=== PATIENT | female | born 1995 | race Caucasian/White ===

== ENCOUNTER 2023-01-17 10:12 | Outpatient (CLI) | payer OTHER, SELFPAY ==
[2023-01-17 17:11] LABS: Chlamydia DNA Amplified* NOT DETECTED (No Detected); GC DNA Amplified* NOT DETECTED (No Detected)
== END 2023-01-17 10:13 | disposition home or self-care (01) ==
PROVIDERS: PCP Nurse Practitioner Family; Visit Provider Nurse Practitioner Family
DX: R35.0 Frequency of micturition (principal); Z11.3 Encounter for screening for infections with a predominantly sexual mode of transmission
CPT/HCPCS: 87086; 87491; 87591

== ENCOUNTER 2023-09-24 08:30 | Outpatient (CLI) | payer OTHER, SELFPAY ==
[2023-09-24 14:54] LABS: Bacterial Vaginosis* Negative (Negative); Candida glab/krus NOT DETECTED (No Detected); Candida species NOT DETECTED (No Detected); Trichomonas vaginalis NOT DETECTED (No Detected)
== END 2023-09-24 08:31 | disposition home or self-care (01) ==
LOC: KYNREF 08:48
PROVIDERS: PCP Nurse Practitioner Family; Visit Provider Nurse Practitioner Family
DX: N89.8 Other specified noninflammatory disorders of vagina (principal)
CPT/HCPCS: 81513; 87481; 87661

== ENCOUNTER 2024-09-20 18:07 | Outpatient (CLI) | payer BC, SELFPAY | END 2024-09-20 18:08 | disposition home or self-care (01) | LOC: KYNREF 18:07 | PROVIDERS: PCP Nurse Practitioner Family; Visit Provider Nurse Practitioner Family | DX: Z12.4 Encounter for screening for malignant neoplasm of cervix (principal) | CPT/HCPCS: 87624; 87625; 88141; 88142 ==

== ENCOUNTER 2025-04-25 08:09 | Emergency (ER) | payer BC, SELFPAY ==
[2025-04-25] VITALS (10 sets, daily range): BP systolic 122–157; BP diastolic 89–111; PULSE 89–118; RESP 12–16; TEMP 36.7; O2SAT 96–100; BMI 40.7
--- OUTSIDE RECORDS SUMMARY | 2025-04-25 08:11 | XMS_ITS | Clinical Summary ---
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 84 tablet 3 9 Active Active Problems No known active problems Immunizations Immunization Administration Dates Next Due DTaP 02/28/2002, 9,1997,06/19,1997 HIB HbOC (HibTITER) 03/15/1999, 8,1997,04/17 Hepatitis A (Peds) 05/21/2010,03/07/2009 Hepatitis B (Peds) 1997,1997, 997 Human Papilloma Virus Vaccine 01/13/2012, 010,03/07/2009 Inactivated Polio Vaccine 02/28/2002,,1997,04/17 Influenza, IIV4 03/27/2019,07/03/2016 Influenza, IIV4 (=>6mos) MDV 04/30/2017 Influenza,CCIIV4 PRESERV FREE 06/11/2018 MENINGOCOCCAL VACCINE 2 VIAL 2MO-55YO (MENVEO) 12/28/2017 MMR 03/07/2009,07/19/1998 Meningococcal Vaccine (Menactra) 03/07/2009 Tdap 03/01/2018,03/07/2009 Tuberculin (PPD) 12/08/2017 Family History Medical History Relation Name Comments Unknown Father Cancer Maternal Grandfather Heart failure Maternal Grandmother Good Health Mother Good Health Sister Relation Name Status Comments Father Maternal Grandfather Maternal Grandmother Mother Alive Sister Alive Social History Tobacco Use Types Packs/Day Years Used Date Smoking Tobacco: Never Smokeless Tobacco: Never Tobacco Cessation:Counseling Given: Yes Alcohol Use Standard Drinks/Week Comments Not Currently 0 (1 standard drink = 0.6 oz pur e alcohol) social Comments No Sex and Gender Information Value Date Recorded Sex Assigned at Not on file Legal Sex Female 12:00 PM CDT Gender Identity Not on file Sexual Orientation Not on file Obstetrics History Last Filed Vital Signs Vital Sign Reading Time Taken Comments Blood Pressure 131/85 03/30/2019 9:19 AM CDT Pulse 80 03/30/2019 9:19 AM CDT Temperature 36.9 C (98.4 F) 03/30/2019 9:19 AM CDT Respiratory Rate 16 06/13/2018 10:12 AM 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 Oxygen Saturation 99% 03/30/2019 9:19 AM CDT Inhaled Oxygen Concentration - - Weight 94.3 kg (208 lb) 03/30/2019 9:19 AM CDT Height 162.4 cm (5' 3.94) 03/30/2019 9:19 AM CD T Body Mass Index 35.77 03/30/2019 9:19 AM CDT Plan of Treatment Health Maintenance Due Date Last Done Comments HIV for age 15-65 02/14/2012 Hepatitis C screening for age 18-79 2015 BMI (ht and wt on same day) for age 18+ 03/30/2020 03/30/2019, 12/28/2017 Depression screening for age 12+ 03/30/2020 03/30/2019, 12/28/2017, 12/28/2017 Pap test for age 21-65 03/30/2022 03/30/2019 COVID-19 vaccine series (2023- season) 2025 Influenza Vaccine (#1) 2025 9, 06/11/2018, 04/30/2017, Additional history exists Tetanus booster 03/01/2028 03/01/2018, 03/07/2009 RSV vaccine for adults or (1 - 1-dose 75+ series) 02/14/2072 Hepatitis B series for 19+ Completed 11/13, 1997, 1997 HPV series for age 9-45 Completed 01/13/20 12, 05/21/2010, 03/07/2009 Pneumococcal series for age 6-49 Aged Out No longer eligible based on patient's age to complete this topic Procedures Procedure Name Priority Date/Time Associated Diagnosis Comments COOK FISHING VESSEL THIN PREP PAP SCREEN IMAGED Routine 03/30/2019 9:44 AM CDT Pap smear for cervical cancer screening from Last 3 Months or Most Recently Relevant to Health Maintenance Results * COOK FISHING VESSEL THIN PREP PAP SCREEN IMAGED (03/30/2019 9:44 AM CDT) Case Report Gynecologic Cytology Report Case: [id number] Authorizing Provider: Kristi Riley, Collected: 03/30/2019 0944 PA Ordering Location: [facility] Received: 03/30/2019 [facility] First Screen: Rodney Burns Specimen: COOK FISHING VESSEL ThinPrep Vial Screening, Cervical 04/06/2019 1:[address] [email or web address] INTERPRETATION/ RESULT NEGATIVE FOR INTRAEPITHELIAL LESION OR MALIGNANCY (NIL) (none) 04/06/2019 1:20 PM CDT [facility] ENTRAL LABORATORY at 1320 CDT ORGANISM(S) Shift in mary suggestive of bacterial vaginosis 04/06/2019 1:[address] [facility] SPECIMEN ADEQUACY Satisfactory for evaluation No endocervical component seen 04/06/2019 1:20 PM CDT [facility] HPV REQUEST HPV if ASCUS 04/06/2019 1:20 PM CDT [facility] ENTRAL LABORATORY Date of LMP 03/06/19 04/06/2019 1:20 PM CDT [facility] ENTRMO LABORATORY Last Pap Date first pap 04/06/2019 1:20 PM CDT [facility] LABORAT[facility] Last Pap Result First Pap/Unknown 1:20 PM CDT [facility] ENTRAL LABORATORY Abnormal Pap or Putnam Bx in last 5 years No 04/06/2019 1:20 PM CDT [facility] LAB[facility] Menstrual Status Regular Periods 04/06/2019 1:20 PM CDT [facility] LABOR[facility] Putnam Bx Done Today No 04/06/2019 1:20 PM CDT [facility] LAB[facility] Additional Information None given 04/06/2019 1:20 PM CDT [facility] Automated Review Successful 04/06/2019 1:20 PM CDT [facility] LABORATORY Comment:Specimen processed s uccessfully by automated petrol tanker driver device, [employer] System, [employer] Note The pap test is a screening technique, not a diagnostic procedure. It is used primarily to screen for squamous cancers and precursor lesions. Published studies have shown that it is subject to both false negative and false positive results. The pap test should not be used as the sole means to diagnose or exclude pre-malignant and malignant lesions. Cytology is screened and interpreted at [facility] - [address], [place] [address] and [facility] - [address]; [place] [address] and [facility] - [address]; [place] [address] and [facility] [address]; [place] [address] 04/06/2019 1:20 PM CDT [facility] Other (Cervical) Non-Blood / Unknown 03/30/2019 9:44 AM CDT 03/30/2019 10:02 AM CDT [facility] Fi nal Result [facility] [address] [place] [address], from Last 3 Months or Most Recently Relevant to Health Maintenance Insurance * Guarantor: Galilea Boone Account Type Relation to Patient Date of Phone Billing Address Personal/Family Self 1995 [address] [place] [address] 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
--- NOTE | 2025-04-25 08:21 | ED_ITS ---
HPI - Chest Pain General Time Seen by Provider: 08:21 Date Seen: 04/25/25 Chief Complaint: Chest Pain Stated Complaint: Chest/back pain Time Seen by Provider: 04/25/25 08:11 Source: patient and RN notes reviewed Mode of arrival: ambulatory Limitations: no limitations History of Present Illness HPI narrative: This 24-year-old female is coming into the ER with center chest pain that goes into her center back. Awoke her in the night. Is worse with breathing and activity. She has underlying anxiety, did try Ativan and did not help, she tried Tums if she does have reflux, did not help. It hurt to lift her 4-year-old son. She notes her heart rate has been in the 120s. She intermittently fell back asleep overnight but symptoms kept waking her up. She can feel that her heart rate is fast. She did start phentermine about a month ago, last dose was yesterday. She is on combined oral contraceptive as well. She has had no travel, no illness. This does not feel like heartburn to her but did try the Tums nonetheless. She knows that a maternal grandmother maybe had a pacemaker, maybe was on a blood thinner. Her mom does not frequent healthcare, she does not know anything about her biologic father. MD complaint: chest pain Related Data Previous Rx's ?Medication ?Instructions ?Recorded acyclovir 400 mg tablet 400 mg PO BID #180 tabs 09/10 08/06 lorazepam 0.5 mg tablet (Ativan) 0.5 mg PO QDAY PRN pa thomas attack(s) 09/20/24 #10 tabs norgestimate 0.18 mg/0.215mg/0.25 1 tab PO QDAY #84 ta bs 09/20/24 mg-ethinyl estradiol 0.025 mg tablet (Bun-Yn-Slvqgetk) sertraline 100 mg tablet (Zoloft) 100 mg PO QDAY #90 t abs 09/20/24 sertraline 50 mg tablet (Zoloft) 50 mg PO QDAY #90 tab s 09/20/24 phentermine 30 mg capsule 30 mg PO QAM #90 caps Allergies Allergy/AdvReac Type Severity Reaction Status Date / Time Penicillins Allergy Mild Rash Verified 04/25/25 08:16 [facility] Family History (Updated 09/24/23 @ 08:03 by Maren Mills, AUTO TRANSPORT DRIVER, RESPIRATORY DIRECTOR) Mother No problems noted. Maternal Grandmother Heart disease Diabetes Social History (Updated 09/24/23 @ 08:26 by Katerina Patrick ~ [facility], [facility]) Narrative: Single. Children 1 biological and 1 lives with her. Formal exercise 3 days a week. Non-smoker. Alcohol, rare. No illicit drug use. What is your current living situation?: I presently have a place to live Problems where you live: no known problems In the past 12 months, utilities in danger of being shut off: yes In past 12 months, lack of transportation kept you from medical appts, meetings, work, or getting things needed for daily living: no In the past 12 mos, have been you worried that your food would run out before you had money to buy more?: never true In the past 12 mos, the food you bought just didn't last and you didn't have money to buy more?: never true Smoking Status: Never smoker How often do you have a drink containing alcohol: monthly or less AUDIT-C Alcohol total score: 1 Non-prescribed substance use: denies use How often does anyone, including family, friends and others, physically hurt you : never How often does anyone, including family, friends and others, insult or talk down to you: never How often does anyone, including family, friends and others, threaten you with harm: never How often does anyone, including family, friends and others, scream or curse at you: never Exam Const Vital Signs, click to edit/add: Vital Signs - 24 hr 04/25/25 08:13 04/25/25 08:28 04/25/25 09:10 Temperature 98.1 F Pulse Rate 94 Pulse Rate [Left Pulse Oximeter] 118 H Respiratory Rate 16 14 Blood Pressure Blood Pressure [Right Upper Arm] 157/111 H Pulse Oximetry 100 99 100 Oxygen Delivery Method 04/25/25 09:32 04/25/25 10:07 04/25/25 10:08 Temperature Pulse Rate 90 93 Pulse Rate [Left Pulse Oximeter] Respiratory Rate 12 Blood Pressure 142/97 H 132/93 H Blood Pressure [Right Upper Arm] Pulse Oximetry 98 98 Oxygen Delivery Method 04/25/25 10:30 04/25/25 10:32 04/25/25 10:45 Temperature Pulse Rate 90 89 102 H Pulse Rate [Left Pulse Oximeter] Respiratory Rate 16 16 Blood Pressure 129/89 Blood Pressure [Right Upper Arm] Pulse Oximetry 99 98 96 Oxygen Delivery Method Room Air Course Course ED Course: This patient will be on cardiac monitoring and pulse oximetry. She will need chest CT PE protocol as she is tachycardic with chest pain on OCP. Will look for her heart rate and rhythm on the monitoring, make sure she is not hypoxic. Will get a full complement of labs including cardiac markers, white count. Reevaluation(s) Time of Reevaluation #1: 09:37 Reevaluation #1: Reviewed patient's chest CT with her. There is no pulmonary emboli, no infiltrate but there is some central bronchial thickening. She certainly could be developing a viral upper respiratory infection. Her troponin is normal. Will do a follow-up troponin to make sure that there are no changes but it is very unlikely that this is ischemic disease at this point. We will try Toradol for her. Time of Reevaluation #2: 10:51 Reevaluation #2: Have reviewed with patient that her troponins remain normal. She still has some discomfort with breathing. That is likely the thickened bronchi that is seen on her CT imaging. There is no indication for antibiotics at this time. Her EKGs remain normal, no evidence of any pericarditis. Her CT did not show any pulmonary emboli. This very likely is viral, would treat like pleurisy. Will give a prescription of Toradol from [facility] and have her use Tylenol as well. Return for worsening symptoms. Patient's tachycardia did resolve here really without any intervention, no arrhythmia was seen, no hypoxia on monitoring. Vital Signs Vital signs: Initial Vital Signs Temperature 98.1 F 04/25/25 08:13 Temperature Source Temporal Artery Scan 04/25/25 08:13 Pulse Rate 118 H 04/25/25 08:13 Respiratory Rate 16 04/25/25 08:13 Blood Pressure 157/111 H 04/25/25 08:13 Blood Pressure Mean 126 H 04/25/25 08:13 Blood Pressure Position Sitting 04/25/25 08:13 Pulse Oximetry 100 04/25/25 08:13 Vital Signs Temperature 98.1 F 04/25/25 08:13 Pulse Rate 118 H 04/25/25 08:13 Respiratory Rate 16 04/25/25 08:13 Blood Pressure 157/111 H 04/25/25 08:13 Pulse Oximetry 100 04/25/25 08:13 Temperature 98.1 F 04/25/25 08:13 Pulse Rate 102 H 04/25/25 10:45 Respiratory Rate 16 04/25/25 10:45 Blood Pressure 129/89 04/25/25 10:32 Pulse Oximetry 96 04/25/25 10:45 Oxygen Delivery Method Room Air 04/25/25 10:32 Medications Administered Medications: Discontinued Medications Generic Name Dose Route Start Last Admin Trade Name Freq PRN Reason Stop Dose Admin Ketorolac Tromethamine 15 mg 04/25/25 09:37 04/25/25 09:41 Ketorolac 15 Mg/Ml Inj IVP 04/25/25 09:38 15 mg ONCE ONE Administration MDM - Chest Pain Lab Data Attestation: I reviewed the patient's lab results. Labs: Lab Results 04/25/25 04/25/25 Range/Units 08:35 10:10 WBC 10.72 (4.50-11.00) K/uL RBC 4.53 (4.00-5.20) m/uL Hgb 13.2 (12.0-16.0) gm/dL Hct 40.5 (33.0-51.0) % MCV 89 (80-100) fL MCH 29 (26-34) pg MCHC 33 (32-36) gm/dL RDW Coeff of Kinga 13.0 (11.5-15.5) % Plt Count 347 (140-440) K/uL Neut % (Auto) 76.3 H (42.0-72.0) % Lymph % (Auto) 14.9 L (20-44) % [place] % (Auto) 6.8 (0.0-11.0) % Eos % (Auto) 1.7 (0.0-7.0) % Baso % (Auto) 0.2 (0.0-3.0) % Neut # (Auto) 8.20 H (1.7-7.0) K/uL Lymph # (Auto) 1.60 (0.90-2.90) K/uL [place] # (Auto) 0.70 (0.00-0.90) K/UL Eos # (Auto) 0.18 (0.00-0.50) K/uL Baso # (Auto) 0.02 (0.00-0.30) K/uL Abs Immat Gran (auto) 0.01 (0.00-0.30) K/uL Imm/Tot Granulo (auto) 0.1 % D-Dimer Quant (PE/DVT) 0.49 (0.00-0.50) ug/ml Sodium 131 L (135-149) mmol/L Potassium 4.0 (3.6-5.1) mmol/L Chloride 100 (96-114) mmol/L Carbon Dioxide 26 (20-32) mmol/L Anion Gap 5 L (7-15) mEq/L BUN 11 (5-24) mg/dL Creatinine 0.7 (0.5-1.5) mg/dL Estimated Creat Clear 98.98 Estimated GFR 121 ml/min Glucose 98 (60-115) mg/dL Calcium 9.2 (8.4-10.6) mg/dL Troponin I 0.01 (0.01-0.04) ng/mL C-Reactive Protein 3.0 H (0.5-1.0) mg/dL NT-Pro-B Natriuret Pep 195 (See Note) pg/mL POC Troponin I 0.00 L 0.00 L (0.01-0.04) ng/ml Imaging Data CT scan - chest: Attestation: I have reviewed the pertinent imaging results. Radiologist's impression: Patient: [facility] Facility:?[facility] Patient ID:?[id number] Site Patient ID:?[id number]. Site :?1995 Study:?CT-Chest Angio W/ 95CC ISOVUE-370 PE PROTOCOL-04/25/2025 8:53:18 AM Ordering Physician:?Ginger Merino Final Report: Indication: Tachycardia Technique: Volumetric multidetector CT images of the chest were obtained after the administration of IV contrast. 95 mL Isovue 370 low osmolar intravenous contrast Comparison: None available. Findings: The thoracic inlet and thyroid gland are unremarkable. The thoracic aorta is nonaneurysmal. There is no central filling defect to suggest pulmonary embolism. There is no mediastinal, hilar or axillary adenopathy. There is mild central bronchial thickening. There is no focal consolidation, effusion or pneumothorax. There is no evidence of pulmonary mass or suspicious pulmonary nodule. The partially visualized upper abdominal viscera are within normal limits. The thoracic vertebral body heights remain intact alignment without significant degenerative change or acute osseous abnormality. Impression: Mild central bronchial thickening without dense consolidation or pulmonary embolus. Please note that all CT scans at this facility use dose modulation, iterative reconstruction, and/or weight-based dosing when appropriate to reduce radiation dose to as low as reasonably achievable. Dictated by Giacomo Mclaughlin MD @ 04/25/2025 9:15:21 AM (Electronic Signature) ECG Data Attestation: I personally reviewed and interpreted this ECG as follows: (Normal sinus rhythm, 100 beats per minute, no ischemia or infarct noted.) ECG interpretation date: 04/25/25 ECG interpretation time: 08:35 Prior ECG tracings: not available for review Interpretation: EKG from 05/01 6:00 a.m. is showing normal sinus rhythm, no acute ischemia, rate is 94 beats per minute. Discharge Plan Discharge Clinical Impression: Pleuritic chest pain Patient Disposition: Home, Self-Care Condition: Stable Instructions: Pleurisy (ED) Additional Instructions: Take Toradol 10 mg every 6 hours as needed for symptom control. Also recommend using Tylenol 1000 mg 3 times a day. If you are having increased difficulty with breathing, symptoms are progressively worsening despite medication use, developed fevers and worsening cough, do recommend re-evaluation. If you have any further concerns or feel you are worsening, really do recommend that you be re-evaluated. Would anticipate that you may have symptoms of pleurisy for 7-10 days. Activity Level: Activity as Tolerated Prescriptions: No Action phentermine 30 mg capsule 30 mg PO QAM Qty: 90 0RF Rx Instructions: must administer 2 hours after breakfast norgestimate-ethinyl estradiol [Lwv-Du-Udiznxje] 0.18/0.215/0.25 mg-25 mcg tablet 1 tab PO QDAY Qty: 84 3RF acyclovir 400 mg tablet 400 mg PO BID Qty: 180 3RF sertraline [Zoloft] 50 mg tablet 50 mg PO QDAY Qty: 90 3RF Rx Instructions: 100 mg and 50 mg daily for a total of 150 mg daily sertraline [Zoloft] 100 mg tablet 100 mg PO QDAY Qty: 90 3RF Rx Instructions: 100 mg and 50 mg daily for a total of 150 mg daily lorazepam [Ativan] 0.5 mg tablet 0.5 mg PO QDAY PRN (Reason: panic attack(s)) Qty: 10 5RF Follow Up/Referrals: Maren Mills APRN, RESPIRATORY DIRECTOR [Primary Care Provider, Family Practice] Stand Alone Forms: [facility] Info Instructions
--- NOTE | 2025-04-25 08:28 | CRLHL7_ITS ---
For Patients: As a result of the Century Cures Act, medical imaging exams and procedure reports are released immediately into your electronic medical record. You may view this report before your referring provider. If you have questions, please contact your health care provider. Indication: Tachycardia Technique: Volumetric multidetector CT images of the chest were obtained after the administration of IV contrast. 95 mL Isovue 370 low osmolar intravenous contrast Comparison: None available. Findings: The thoracic inlet and thyroid gland are unremarkable. The thoracic aorta is nonaneurysmal. There is no central filling defect to suggest pulmonary embolism. There is no mediastinal, hilar or axillary adenopathy. There is mild central bronchial thickening. There is no focal consolidation, effusion or pneumothorax. There is no evidence of pulmonary mass or suspicious pulmonary nodule. The partially visualized upper abdominal viscera are within normal limits. The thoracic vertebral body heights remain intact alignment without significant degenerative change or acute osseous abnormality. Impression: Mild central bronchial thickening without dense consolidation or pulmonary embolus. Please note that all CT scans at this facility use dose modulation, iterative reconstruction, and/or weight-based dosing when appropriate to reduce radiation dose to as low as reasonably achievable. Dictated by Giacomo Mclaughlin MD @ 04/25/2025 9:15:21 AM (Electronically Signed)
[2025-04-25 08:47] LABS: Hematocrit* 40.5 % (33.0-51.0); Hemoglobin* 13.2 gm/dL (12.0-16.0); Immature Granulocytes Abs Auto 0.01 K/uL (0.00-0.30); Immature Granulocytes Pct Auto 0.1 %; Lymphocytes Absolute Auto 1.60 K/uL (0.90-2.90); Mean Corpuscular HGB Conc 33 gm/dL (32-36); Mean Corpuscular Hemoglobin 29 pg (26-34); Mean Corpuscular Volume 89 fL (80-100); RDW Coefficient of Variation % 13.0 % (11.5-15.5); Red Blood Count* 4.53 m/uL (4.00-5.20); White Blood Count* 10.72 K/uL (4.50-11.00)
[2025-04-25 08:53] LABS: Slide Review Reflex No
[2025-04-25 08:58] LABS: Chloride* 100 mmol/L (96-114)
[2025-04-25 08:59] LABS: Potassium* 4.0 mmol/L (3.6-5.1); Sodium* 131 mmol/L (135-149); Troponin, Point-of-Care* 0.00 ng/ml (0.01-0.04)
[2025-04-25 09:01] LABS: Blood Urea Nitrogen* 11 mg/dL (5-24); Creatinine* 0.7 mg/dL (0.5-1.5); Est. Creatinine Clearance* 98.98; Estimated Glomerular Filt Rate 121 ml/min
[2025-04-25 09:02] LABS: Anion Gap 5 mEq/L (7-15); Calcium* 9.2 mg/dL (8.4-10.6); Carbon Dioxide* 26 mmol/L (20-32); Glucose* 98 mg/dL (60-115)
[2025-04-25 09:04] LABS: D Dimer Quantitative* 0.49 ug/ml (0.00-0.50)
[2025-04-25 09:18] LABS: NT Pro B Type NatriureticPept* 195 pg/mL (See Note)
[2025-04-25 10:31] LABS: Troponin, Point-of-Care* 0.00 ng/ml (0.01-0.04)
== END 2025-04-25 11:05 | disposition home or self-care (01) ==
PROVIDERS: Emergency Provider Family Medicine; PCP Nurse Practitioner Family
DX: R07.81 Pleurodynia (principal); R07.9 Chest pain, unspecified; Z79.899 Other long term (current) drug therapy
CPT/HCPCS: 36415; 71275; 80048; 83880; 84484; 85025; 85379; 86140; 93005; 94761; 96374; 99284; 99285; J1885; Q9967